=== PATIENT | female | born 1975 | race Caucasian/White ===

== ENCOUNTER 2017-05-05 16:29 | Emergency (ER) | payer OTHER ==
[~2017-05-05] VITALS: Ht 154.9 cm; Wt 63.5 kg
--- NOTE | ~2017-05-05 | EKG ---
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
[~2017-05-05 16:29] MED LIST: AMOXICILLI400 MG/5 M PO; CLEOCIN HCL300 MG PO; PERCOCET 5-3251 EACH PO; ULTRAM 50MG TAB50 MG PO; ZOFRAN4 MG PO
[2017-05-05 16:53] LABS: ABSOLUTE NEUTROPHILS 1.9 thou/uL (1.4-8.2); BASOPHILS 1.3 % (0.0-2.0); EOSINOPHILS 0.8 % (0.0-3.0); LYMPHOCYTES 50.3 % (24.0-44.0); MANUAL DIFF NO; MCHC 35.7 g/dL (28.0-37.0); MCV 106.5 fL (80.0-100.0); MONOCYTES 10.1 % (1.0-8.0); PLATELET COUNT 135 thou/uL (150-400); POLYS 37.5 % (36.0-66.0); RBC 3.94 mil/uL (4.20-5.00); RDW 14.2 % (10.5-14.5); WBC 5.1 thou/uL (4.0-11.0)
[2017-05-05 17:01] LABS: ANION GAP 14 mmol/L (7-16); BUN 12 mg/dL (7-18); CHLORIDE 97 mmol/L (98-107); CO2 25 mmol/L (21-32); CREATININE 0.9 mg/dL (0.6-1.0); GLUCOSE 92 mg/dL (74-106); POTASSIUM 3.4 mmol/L (3.5-5.1); SODIUM 136 mmol/L (136-145)
[2017-05-05 17:10] LABS: TROPONIN-I < 0.04 ng/mL (<0.04-0.07)
[2017-05-05] MEDS ORDERED: REGLAN 10 MG TA10 MG PO (18:46)
[2017-05-05 18:57] VITALS: BP 140/89
== END 2017-05-05 18:58 | disposition home or self-care (01) ==
LOC: ER 16:29
PROVIDERS: Physician Assistant
DX: R07.9 Chest pain, unspecified (principal); R11.2 Nausea with vomiting, unspecified; F17.210 Nicotine dependence, cigarettes, uncomplicated; F10.99 Alcohol use, unspecified with unspecified alcohol-induced disorder

== ENCOUNTER 2017-12-04 11:29 | Emergency (ER) | payer OTHER ==
[~2017-12-04] VITALS: Ht 160 cm; Wt 68.0 kg
--- NOTE | ~2017-12-04 | EKG ---
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
[~2017-12-04 11:29] MED LIST changes: +REGLAN 10 MG TA10 MG PO
[2017-12-04 12:07] LABS: URINE BLOOD NEGATIVE (Negative); URINE CLARITY CLEAR; URINE COLOR YELLOW; URINE GLUCOSE-RANDOM* NEGATIVE (Negative); URINE KETONES NEGATIVE (Negative); URINE LEUKOCYTES NEGATIVE (Negative); URINE NITRITE NEGATIVE (Negative); URINE PROTEIN (DIPSTICK) NEGATIVE (Negative); URINE SPECIFIC GRAVITY <= 1.005 (1.005-1.035); URINE UROBILINOGEN 0.2 E.U./dl (0.2-1.0)
[2017-12-04 12:11] LABS: ICTOTEST (BILI CONFIRMATORY) Negative (Negative); URINE BILIRUBIN NEGATIVE (Negative)
[2017-12-04 12:34] LABS: ABSOLUTE NEUTROPHILS 2.7 thou/uL (1.4-8.2); BASOPHILS 1.3 % (0.0-2.0); EOSINOPHILS 0.3 % (0.0-3.0); HEMATOCRIT 40.8 % (37.0-47.0); HEMOGLOBIN 14.1 gm/dL (12.0-15.0); LYMPHOCYTES 24.9 % (24.0-44.0); MCH 37.2 pg (26.0-34.0); MCHC 34.7 g/dL (28.0-37.0); MCV 107.2 fL (80.0-100.0); POLYS 63.5 % (36.0-66.0); RDW 14.1 % (10.5-14.5); WBC 4.3 thou/uL (4.0-11.0)
[2017-12-04 13:12] LABS: LARGE PLATELETS OCCASIONAL; PLATELET COUNT 60 thou/uL (150-400)
[2017-12-04 13:40] LABS: CALCIUM 9.4 mg/dL (8.5-10.1); CREATININE 0.6 mg/dL (0.6-1.0); POTASSIUM 3.1 mmol/L (3.5-5.1)
[2017-12-04 13:46] LABS: ALBUMIN 2.7 g/dL (3.4-5.0); TOTAL BILIRUBIN 5.5 mg/dL (<0.1-1.0)
[2017-12-04 14:07] LABS: TOTAL PROTEIN 6.9 g/dL (6.4-8.2)
[2017-12-04] MEDS ORDERED: PHENERGAN 25 MG25 M1 PO (15:18)
[2017-12-04] MEDS ORDERED: HYDROCODONE-AP1 EAC6 PO (15:18)
[2017-12-04 15:41] VITALS: BP 133/87
== END 2017-12-04 15:41 | disposition home or self-care (01) ==
LOC: ER 11:29
PROVIDERS: Physician Assistant
DX: R10.13 Epigastric pain (principal); R79.89 Other specified abnormal findings of blood chemistry; F17.210 Nicotine dependence, cigarettes, uncomplicated